=== PATIENT | female | born 1965 | race Caucasian/White ===

== ENCOUNTER 2021-03-04 18:13 | Emergency (ER) | payer OTHER, BC ==
[2021-03-04] MEDS ORDERED: Sodium Chloride 0.9% 10 ML Syringe FLUSH PRN (18:36)
[2021-03-04] MEDS ORDERED: HYDROmorphone 1 MG/ML Syringe IVPUSH ONE (18:37)
[2021-03-04] MEDS ORDERED: Ondansetron 4 MG/2 ML SDV IVPUSH ONE (18:37)
[2021-03-04] MEDS ORDERED: Iopamidol 612 MG/ML 100 ML Bottle IV PRN (19:08)
[2021-03-04] MEDS ORDERED: Sodium Chloride 0.9% 10 ML SDV FLUSH ONE (19:08)
[2021-03-04] MEDS ORDERED: Sodium Chloride 0.9% 100 ML IV SCH (19:15)
--- NOTE | 2021-03-04 20:20 | EDM.PDOC ---
ED HPI GENERAL MEDICAL PROBLEM - General Chief Complaint: Lower Extremity Injury/Pain Stated Complaint: FELL HURT RIGHT THIGH Time Seen by Provider: 03/04/21 18:33 Source of Information: Reports: Patient History Limitations: Reports: No Limitations - History of Present Illness INITIAL COMMENTS - FREE TEXT/NARRATIVE: Caitlin is a 55-year-old female presenting to the ED for with concerns of a large hematoma in her right thigh resulting in a fall at home today. Patient was putting away her equipment after doing leaf removal from her yard and had tarps over the riding lawnmower and leaf blower. She missed stepped catching her foot on the tarp over the leaf for causing her to fall and land on it striking her lateral right thigh. The patient is on anticoagulation for a pat ent foramen ovale that is resulted in 2 strokes. Her last INR was checked 2 weeks ago and was 2.5. She reports some tingling down the right lower extremity to the foot. She has a significant bruise and swelling of the lateral thigh. Right Leg Pain Score (Numeric/FACES): 4 - Related Data Allergies Allergy/AdvReac Type Severity Reaction Status Date / Time morphine Allergy Itching Verified 03/04/21 18:50 Penicillins Allergy Nausea and Verified 03/04/21 18:50 Vomiting Sulfa (Sulfonamide Allergy Rash Verified 03/04/21 18:50 Antibiotics) Home Meds: Home Meds Aspirin [Halfprin] 81 mg PO ACDINNER 03/04/21 [History] Cholecalciferol (Vitamin D3) [Vitamin D] 2,000 intnl unit PO ACDINNER 03/04/21 [History] Fexofenadine [Abbie] 1 tab PO ACDINNER 03/04/21 [History] Warfarin [Coumadin] 5 mg PO ACDINNER 03/04/21 [History] atenoloL [Atenolol] 25 mg PO ACDINNER 03/04/21 [History] guaiFENesin [Mucinex] 600 mg PO ACDINNER 03/04/21 [History] hydroCHLOROthiazide [Hydrochlorothiazide] 25 mg PO MOWESA 03/04/21 [History] Past Medical History HEENT History: Reports: None Cardiovascular History: Reports: Other (See Below) Other Cardiovascular History: hole in heart Genitourinary History: Reports: None Musculoskeletal History: Reports: None Neurological History: Reports: CVA Endocrine/Metabolic History: Reports: Obesity/BMI 30+ - Infectious Disease History Infectious Disease History: Reports: Chicken Pox, Mumps - Past Surgical History Head Surgeries/Procedures: Reports: None HEENT Surgical History: Reports: Naso-Sinus Surgery, Other (See Below) Cardiovascular Surgical History: Reports: None Female Surgical History: Reports: Hysterectomy, Oophorectomy Endocrine Surgical History: Reports: None Neurological Surgical History: Reports: None Musculoskeletal Surgical History: Reports: Other (See Below) Other Musculoskeletal Surgeries/Procedures:: shoulder remove bone spurs. right knee surgery Social & Family History - Tobacco Use Tobacco Use Status *Q: Never Tobacco User Second Hand Smoke Exposure: No - Caffeine Use Caffeine Use: Reports: Coffee, Soda, Tea - Recreational Drug Use Recreational Drug Use: No Review of Systems - Review of Systems Review Of Systems: See Below Constitutional: Reports: No Symptoms Eyes: Reports: No Symptoms Ears: Reports: No Symptoms Nose: Reports: No Symptoms Mouth/Throat: Reports: No Symptoms Respiratory: Reports: No Symptoms Cardiovascular: Reports: Other (On chronic anticoagulation for a patent foramen ovale) GI/Abdominal: Reports: No Symptoms Genitourinary: Reports: No Symptoms Musculoskeletal: Reports: Muscle Pain (Right thigh pain and swelling) Skin: Reports: Bruising (Significant bruising over the lateral right thigh) Neurological: Reports: Numbness (Right lower extremity), Tingling (Right lower extremity) Psychiatric: Reports: No Symptoms ED EXAM, GENERAL - Physical Exam Exam: See Below Exam Limited By: No Limitations General Appearance: Alert, Anxious, Moderate Distress Eye Exam: Bilateral Eye: EOMI, PERRL Throat/Mouth: Normal Inspection, Normal Oropharynx, Normal Voice, No Airway Compromise Head: Atraumatic, Normocephalic Neck: Normal Inspection, Supple Respiratory/Chest: No Respiratory Distress, Lungs Clear, Normal Breath Sounds, No Accessory Muscle Use Cardiovascular: Normal Peripheral Pulses, Regular Rate, Rhythm, No Murmur Peripheral Pulses: 2+: Radial (L), Radial (R), Posterior Tibial (R) Extremities: Normal Range of Motion, Normal Capillary Refill, Leg Pain Neurological: Alert, Oriented, Normal Cognition, No Motor/Sensory Deficits Psychiatric: Normal Affect, Anxious Skin Exam: Warm Course - Vital Signs Last Recorded V/S: Last Vital Signs Temp 36.4 C 03/04/21 18:55 Pulse 65 03/04/21 18:55 Resp 24 H 03/04/21 18:55 BP 133/45 L 03/04/21 18:55 Pulse Ox 100 03/04/21 18:55 - Orders/Labs/Meds Orders: Active Orders 24 hr Category Date Time Status Iopamidol [Isovue-300 (61%)] Med 03/04/21 19:08 Active 100 ml IV . DIRECTED PRN Sodium Chloride 0.9% [Normal Saline] 100 ml Med 03/04/21 19:15 Active IV ASDIRECTED Sodium Chloride 0.9% [Saline Flush] Med 03/04/21 18:36 Active 10 ml FLUSH ASDIRECTED PRN Saline Lock Insert [OM.PC] Routine Oth 03/04/21 18:36 Ordered Medication Orders Sodium Chloride (Normal Saline) 100 mls @ 3 mls/sec IV ASDIRECTED MCKAY Last Admin: 03/04/21 20:08 Dose: 3 mls/sec Documented by: KAREN Iopamidol (Iopamidol 612 Mg/Ml 100 Ml Bottle) 100 ml IV . DIRECTED PRN PRN Reason: RADIOLOGY EXAM Stop: 03/05/21 19:09 Last Admin: 03/04/21 20:08 Dose: 100 ml Documented by: KAREN Sodium Chloride (Sodium Chloride 0.9% 10 Ml Syringe) 10 ml FLUSH ASDIRECTED PRN PRN Reason: Keep Vein Open Last Admin: 03/04/21 20:08 Dose: 10 ml Documented by: KAREN Labs: Laboratory Tests 03/04/21 03/04/21 03/04/21 Range/Units 18:51 18:51 18:51 WBC 11.5 H (4.5-11.0) K/uL RBC 4.46 (3.30-5.50) M/uL Hgb 13.5 (12.0-15.0) g/dL Hct 39.8 (36.0-48.0) % MCV 89 (80-98) fL MCH 30 (27-31) pg MCHC 34 (32-36) % Plt Count 317 (150-400) K/uL Neut % (Auto) 74.0 H (36-66) % Lymph % (Auto) 16.6 L (24-44) % [place] % (Auto) 7.7 H (2-6) % Eos % (Auto) 1.4 L (2-4) % Baso % (Auto) 0.3 (0-1) % PT 31.5 H (9.2-10.6) sec INR 3.2 Sodium 138 L (140-148) mmol/L Potassium 3.1 L (3.6-5.2) mmol/L Chloride 99 L (100-108) mmol/L Carbon Dioxide 27 (21-32) mmol/L Anion Gap 15.1 H (5.0-14.0) mmol/L BUN 16 (7-18) mg/dL Creatinine 0.8 (0.6-1.0) mg/dL Est Cr Clr Drug Dosing 67.80 mL/min Estimated GFR (MDRD) > 60 (>60) Glucose 100 (74-106) mg/dL Calcium 8.6 (8.5-10.1) mg/dL Meds: Medications Generic Name Dose Route Start Last Admin Trade Name Alexandrq PRN Reason Stop Dose Admin Sodium Chloride 100 mls @ 3 mls/sec 03/04/21 19:15 03/04/21 20:08 Normal Saline IV 3 mls/sec ASDIRECTED MCKAY Administration Iopamidol 100 ml 03/04/21 19:08 03/04/21 20:08 Iopamidol 612 Mg/Ml 100 Ml Bottle IV 03/05/21 19:09 100 ml . DIRECTED PRN Administration RADIOLOGY EXAM Sodium Chloride 10 ml 03/04/21 18:36 03/04/21 20:08 Sodium Chloride 0.9% 10 Ml Syringe FLUSH 10 ml ASDIRECTED PRN Administration Keep Vein Open Discontinued Medications Generic Name Dose Route Start Last Admin Trade Name Mi PRN Reason Stop Dose Admin Hydromorphone HCl 1 mg 03/04/21 18:37 03/04/21 19:45 Hydromorphone 1 Mg/Ml Syringe IVPUSH 03/04/21 18:38 1 mg ONETIME ONE Administration Ondansetron HCl 4 mg 03/04/21 18:37 03/04/21 19:44 Ondansetron 4 Mg/2 Ml Sdv IVPUSH 03/04/21 18:38 4 mg ONETIME ONE Administration Sodium Chloride 10 ml 03/04/21 19:08 03/04/21 19:47 Sodium Chloride 0.9% 10 Ml Sdv FLUSH 03/04/21 19:09 10 ml ONETIME ONE Administration - Radiology Interpretation Free Text/Narrative:: I reviewed the images of the CT of the right lower extremity with contrast as well as the report. The report is as follows: Findings: There is a moderate sized hematoma in the deep subcutaneous fat of the right mid thigh measuring 4.0 x 3.0 x 5.4 centimeters, with surrounding soft tissue stranding consistent with extravasation blood into the soft tissues. There is no sign of swelling of the muscle belly of the underlying vastus lateralis. There is no sign of underlying osseous injury, with intact appearance of the right femoral shaft. The right hip and right knee are intact as well, with no sign of fracture or dislocation. The visualized right intrapelvic structures are normal in appearance. The appendix, cecum, small bowel, the sigmoid colon, and rectum included on today`s study are normal in appearance. The vaginal cuff is normal in appearance with absence of the uterus consistent with hysterectomy. The urinary bladder is normal in appearance. Impression: Hematoma in the deep subcutaneous fat of the right mid thigh measuring 4.0 x 3.0 x 5.4 centimeters, with moderate surrounding extravasation of blood into the soft tissues. No sign of any underlying injury to the muscular or osseous structures. Please note that all CT scans at this facility use dose modulation, iterative reconstruction, and/or weight-based dosing when appropriate to reduce radiation dose to as low as reasonably achievable. Dictated by Bal Mayorga MD @ 03/04/2021 9:17:01 PM - Re-Assessments/Exams Free Text/Narrative Re-Assessment/Exam: 03/04/21 22:25 I reviewed the patient's labs showing a leukocyte count of 11.5, hemoglobin of 13.5, hematocrit of 39.8 and a platelet count of 317,000. Her basic metabolic profile shows a sodium of 138, potassium 3.1, chloride of 99, bicarbonate of 27, BUN of 16 with a creatinine of 0.8 and glucose of 100. Her INR is 3.2. I did review with her the findings on the CT showing that this is a traumatic hematoma involving the subcutaneous tissue but not involving the muscle layers so the likelihood of developing a compartment syndrome is extremely low. We did measure the leg and compare it an hour later and there was no change in diameter to suggest further bleeding. I encouraged her to apply ice to the area to reduce blood flow to that area and reduce swelling as well as hold her Coumadin for the next couple of days to allow her INR to drift down. Indications to return to ED were discussed and she was in agreement with the plan. Departure - Departure Time of Disposition: 22:20 Disposition: Home, Self-Care 01 Clinical Impression: Chronic anticoagulation Traumatic hematoma of right thigh Qualifiers: Encounter type: initial encounter Qualified Code(s): S70.11XA - Contusion of right thigh, initial encounter - Discharge Information Instructions: Hematoma Referrals: PCP,None [Primary Care Provider] - Forms: ED Department Discharge Care Plan Goals: I would continue to apply ice to the area of bruising 15 to 20 minutes every hour to that you are awake. Be mindful of any additional swelling of the area that could indicate further bleeding. I would hold your Coumadin for the next couple of days to allow your INR to drift down. Should you have any significant increase in pain, development of numbness in the lower extremity or further bleeding please return immediately to the ER for reevaluation. I am going to send you home with hydrocodone for pain control. Avoid any ibuprofen or aspirin as they may promote more bleeding. Sepsis Event Note (ED) - Focused Exam Vital Signs: Vital Signs Temp Pulse Resp BP Pulse Ox 03/04/21 18:55 36.4 C 65 24 H 133/45 L 100 03/04/21 18:35 36.4 C 65 24 H 133/45 L 100 - Problem List & Annotations (1) Chronic anticoagulation SNOMED Code(s): 661817949 Code(s): Z79.01 - [facility] (CURRENT) USE OF ANTICOAGULANTS Status: Chronic Priority: Medium Current Visit: Yes (2) Traumatic hematoma of right thigh SNOMED Code(s): 97739580692471774, [id number], [id number] Code(s): S70.11XA - CONTUSION OF RIGHT THIGH, INITIAL ENCOUNTER Status: Acute Priority: High Current Visit: Yes Qualifiers: Encounter type: initial encounter Qualified Code(s): S70.11XA - Contusion of right thigh, initial encounter - Problem List Review Problem List Initiated/Reviewed/Updated: Yes - My Orders Last 24 Hours: My Active Orders 03/04/21 18:36 Sodium Chloride 0.9% [Saline Flush] 10 ml FLUSH ASDIRECTED PRN Saline Lock Insert [OM.PC] Routine 03/04/21 19:08 Iopamidol [Isovue-300 (61%)] 100 ml IV . DIRECTED PRN 03/04/21 19:15 Sodium Chloride 0.9% [Normal Saline] 100 ml IV ASDIRECTED - Assessment/Plan Last 24 Hours: My Active Orders 03/04/21 18:36 Sodium Chloride 0.9% [Saline Flush] 10 ml FLUSH ASDIRECTED PRN Saline Lock Insert [OM.PC] Routine 03/04/21 19:08 Iopamidol [Isovue-300 (61%)] 100 ml IV . DIRECTED PRN 03/04/21 19:15 Sodium Chloride 0.9% [Normal Saline] 100 ml IV ASDIRECTED
--- NOTE | 2021-03-04 21:18 | CRLCT ---
For Patients: As a result of the Century Cures Act, medical imaging exams and procedure reports are released immediately into your electronic medical record. You may view this report before your referring provider. If you have questions, please contact your health care provider. Indication: Status post fall tonight with bruising. Patient on anticoagulation. Concern of right by hematoma. Technique: Spiral CT examination of the right thigh is performed with the uneventful intravenous administration of 100 cc of Isovue-300. 2 millimeter thick sagittal, axial, and coronal images are obtained. Please note that all CT scans at this facility use dose modulation, iterative reconstruction, and/or weight-based dosing when appropriate to reduce radiation dose to as low as reasonably achievable. Comparison: None available Findings: There is a moderate sized hematoma in the deep subcutaneous fat of the right mid thigh measuring 4.0 x 3.0 x 5.4 centimeters, with surrounding soft tissue stranding consistent with extravasation blood into the soft tissues. There is no sign of swelling of the muscle belly of the underlying vastus lateralis. There is no sign of underlying osseous injury, with intact appearance of the right femoral shaft. The right hip and right knee are intact as well, with no sign of fracture or dislocation. The visualized right intrapelvic structures are normal in appearance. The appendix, cecum, small bowel, the sigmoid colon, and rectum included on today`s study are normal in appearance. The vaginal cuff is normal in appearance with absence of the uterus consistent with hysterectomy. The urinary bladder is normal in appearance. Impression: Hematoma in the deep subcutaneous fat of the right mid thigh measuring 4.0 x 3.0 x 5.4 centimeters, with moderate surrounding extravasation of blood into the soft tissues. No sign of any underlying injury to the muscular or osseous structures. Please note that all CT scans at this facility use dose modulation, iterative reconstruction, and/or weight-based dosing when appropriate to reduce radiation dose to as low as reasonably achievable. Dictated by Bal Mayorga MD @ 03/04/2021 9:17:01 PM (Electronically Signed)
== END 2021-03-04 22:35 | disposition home or self-care (01) ==
LOC: JP.ED 18:13
DX: S70.11XA Contusion of right thigh, initial encounter (principal); D68.9 Coagulation defect, unspecified; E66.9 Obesity, unspecified; Z68.30 Body mass index [BMI] 30.0-30.9, adult; Z88.0 Allergy status to penicillin; Z88.5 Allergy status to narcotic agent; Z88.2 Allergy status to sulfonamides; Z86.73 Personal history of transient ischemic attack (TIA), and cerebral infarction without residual deficits; Z79.82 Long term (current) use of aspirin; Z79.01 Long term (current) use of anticoagulants; Z79.899 Other long term (current) drug therapy; W18.39XA Other fall on same level, initial encounter; Y92.009 Unspecified place in unspecified non-institutional (private) residence as the place of occurrence of the external cause
CPT/HCPCS: 36415; 73701; 80048; 85025; 85610; 96374; 96375; 99284; J1170; J2405; Q9967

== ENCOUNTER 2022-11-26 16:17 | Emergency (ER) | payer BC, OTHER | END 2022-11-26 18:38 | disposition home or self-care (01) | LOC: JP.ED 16:17 | DX: S60.562A Insect bite (nonvenomous) of left hand, initial encounter (principal); E66.9 Obesity, unspecified; Z68.30 Body mass index [BMI] 30.0-30.9, adult; Z88.5 Allergy status to narcotic agent; Z88.0 Allergy status to penicillin; Z88.2 Allergy status to sulfonamides; Z79.82 Long term (current) use of aspirin; Z79.899 Other long term (current) drug therapy; W57.XXXA Bitten or stung by nonvenomous insect and other nonvenomous arthropods, initial encounter | CPT/HCPCS: 99283 ==